=== PATIENT | female | born 1990 ===

== ENCOUNTER 2021-05-24 09:29 | Outpatient (CLI) | payer OTHER | END 2021-05-24 09:30 | disposition home or self-care (01) | LOC: MAMO-SONO 09:29 | DX: N89.8 Other specified noninflammatory disorders of vagina (principal) ==

== ENCOUNTER 2021-07-05 09:51 | Outpatient (CLI) | payer OTHER | END 2021-07-05 10:03 | disposition home or self-care (01) | LOC: SONOGRAMA 09:51 → MAMO-SONO 10:00 → SONOGRAMA 10:03 | PROVIDERS: ATTEND Obstetrics & Gynecology Reproductive Endocrinology | DX: N83.292 Other ovarian cyst, left side (principal); N83.291 Other ovarian cyst, right side ==